=== PATIENT | female | born 1980 | race Caucasian/White ===

== ENCOUNTER 2018-09-23 09:20 | Emergency (ER) | payer OTHER ==
--- NOTE | 2018-09-23 09:25 | PDOC ---
History of Present Illness - General Chief Complaint: Pain, Acute Stated Complaint: BACK PAIN Time Seen by Provider: 09/23/18 09:25 History Source: Patient Exam Limitations: No Limitations - History of Present Illness Initial Comments: 09/23/18 09:33 Ms Freeman is a 37 yo F h/o thyroiditis, SVT presenting to the ER with a complaint of right flank pain. Symptoms began several days ago. 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 HEAD, EYES, EARS, NOSE AND THROAT: No: change in vision, ear pain, discharge, sore throat, throat swelling. CARDIOVASCULAR: No: chest pain, lightheadedness, palpitations, syncope RESPIRATORY: No: cough, shortness of breath, wheezing, hemoptysis, stridor. GASTROINTESTINAL: No: nausea, vomiting, diarrhea, abdominal cramping, rectal bleeding, constipation. GENITOURINARY: Yes: flank pain No: dysuria, hematuria, frequency, urgency, flank pain. MUSCULOSKELETAL: No: back pain, neck pain, joint pain, muscle swelling or pain SKIN: No: lesions, pallor, rash or easy bruising. NEUROLOGIC: No: headache, vertigo, paresthesias, weakness ENDOCRINE: No: unexplained weight gain or loss HEMATOLOGIC/LYMPHATIC: No: anemia, easy bleeding, swelling nodes. PE: GENERAL: The patient is in no acute distress. HEAD: Normal EYES: PERRLA, EOMI, sclera anicteric, conjunctiva clear. ENT: Ears normal, nares patent, oropharynx clear without exudates. Moist mucous membranes. NECK: Normal range of motion LUNGS: Breath sounds equal, clear to auscultation bilaterally. HEART:Regular rate and rhythm, normal S1 and S2 without murmur, rub or gallop. ABDOMEN: Soft, nontender, normoactive bowel sounds. No guarding, no rebound. No masses palpable. EXTREMITIES: Normal range of motion NEUROLOGICAL: Cranial nerves II through XII grossly intact. Normal speech. No focal neurological deficits. MUSCULOSKELETAL: Yes: right CVA tenderness (pt feels pain when the US probe presses in to the kidney) SKIN: Warm, Dry, normal turgor, no rashes or lesions noted. Past History - Past Medical History Allergies/Adverse Reactions: Allergies Allergy/AdvReac Type Severity Reaction Status Date / Time No Known Drug Allergies Allergy Verified 02/06/18 13:23 phenol [From Chloraseptic] Allergy Verified 09/23/18 09:22 Home Medications: Ambulatory Orders Lidocaine 5% Patch [Lidoderm Patch -] 1 patch TP DAILY PRN #30 patch 09/23/18 Methocarbamol [Robaxin -] 500 mg PO TID PRN #30 tablet 09/23/18 Naproxen [Naprosyn -] 500 mg PO BID PRN #14 tablet 09/23/18 Anemia: No Asthma: No Cancer: No Cardiac Disorders: Yes (svt) CVA: No COPD: No CHF: No Dementia: No Diabetes: No GI Disorders: No Disorders: No HTN: No Hypercholesterolemia: No Kidney Stones: Yes Liver Disease: No Seizures: No Thyroid Disease: Yes - Surgical History Abdominal Surgery: No Appendectomy: Yes Cardiac Surgery: No Cholecystectomy: Yes - Immunization History Immunization Up to Date: Yes - Suicide/Smoking/Psychosocial Hx Smoking Status: No Smoking History: Never smoked Have you smoked in the past 12 months: No Number of Cigarettes Smoked Daily: 0 Cigars Per Day: 0 Hx Alcohol Use: No Drug/Substance Use Hx: No Substance Use Type: None Hx Substance Use Treatment: No Medical Decision Making - Medical Decision Making 09/23/18 09:44 Flank pain : Pyelonephritis vs obstructing stone vs. musculoskeletal pain No signs of zoster UA/Urine culture Spiral CT Toradol Reassess 09/23/18 10:36 Laboratory Tests 09/23/18 09/23/18 09:34 09:34 Urine Blood 1+ H Urine Nitrite Negative Ur Leukocyte Esterase Negative Urine WBC (Auto) 1 Urine RBC (Auto) 1 Urine HCG, Qual Negative Spiral ct negative Will give robaxin Will ask pt to follow up with PMD *DC/Admit/Observation/Transfer Diagnosis at time of Disposition: Right flank pain - Discharge Dispostion Disposition: HOME Condition at time of disposition: Stable Decision to Admit order: No - Referrals - Patient Instructions Printed Discharge Instructions: DI for Flank Pain Additional Instructions: Thank you for coming in to the ER today Please be sure to follow up with your primary care physician Please return to the ER for persistent or worsening symptoms Monitor for fevers If you develop fevers you must return for re evaluation - Post Discharge Activity
[2018-09-23] MEDS ORDERED: KETOROLAC TROMETHAMINE 30 MG/1 ML VIAL IM ONE (09:28)
[2018-09-23 09:45] LABS: URINE APPEARANCE CLEAR; URINE BILIRUBIN NEGATIVE (<2.0 mg/dL); URINE COLOR LTYELLOW; URINE GLUCOSE (UA) NEGATIVE (NEGATIVE); URINE KETONE NEGATIVE (NEGATIVE); URINE LEUK ESTERASE NEGATIVE (NEGATIVE); URINE NITRITE NEGATIVE (NEGATIVE); URINE PROTEIN NEGATIVE (NEGATIVE); URINE UROBILINOGEN NEGATIVE mg/dL (0.2-1.0)
[2018-09-23 10:28] LABS: EPI CELLS RARE /HPF (FEW); URINE BACTERIA RARE /hpf (NONE SEEN)
[2018-09-23] MEDS ORDERED: METHOCARBAMOL 500 MG TABLET PO ONE (10:35)
[2018-09-23] MEDS ORDERED: METHOCARBAMOL 500 MG TABLET ONE (10:39)
== END 2018-09-23 11:16 | disposition home or self-care (01) ==
LOC: JER 09:20
PROC: 3E0233Z Introduction of Anti-inflammatory into Muscle, Percutaneous Approach (ICD-10-PCS; principal; 2018-09-23)
DX: R10.31 Right lower quadrant pain (principal); I47.1 Supraventricular tachycardia; Z87.442 Personal history of urinary calculi
CPT/HCPCS: 74176; 81003; 81015; 84703; 87086; 99282-25

== ENCOUNTER 2019-02-09 06:47 | Emergency (ER) | payer OTHER ==
[2019-02-09 06:50] VITALS: BP 148/65; PULSE 115; TEMP 98; BMI 35.5
[2019-02-09] MEDS ORDERED: ACETAMINOPHEN 1000 MG/100 ML VIAL (NON FORMULARY) IVPB ONE (07:48)
[2019-02-09] MEDS ORDERED: ACETAMINOPHEN INJECTION 100 ML IVPB ONE (07:53)
--- NOTE | 2019-02-09 08:10 | PDOC ---
History of Present Illness - General Chief Complaint: Back Pain Stated Complaint: BACK PAIN Time Seen by Provider: 02/09/19 07:10 History Source: Patient Exam Limitations: No Limitations - History of Present Illness Initial Comments: 02/09/19 08:33 38y F hx of svt, kidney stones, remote hx of sciatica presents with R sided back pain. 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 When she woke up yetserday it was still present, but gradually worsened around 4pm last night where it was more severe and pt was uanble to walk/stand/ get out of her SUV. The pain is worse when she is straight, improves with rest. radiates dwon her R thigh. no associated fever/chills, numbness/tingling/ weakness, urinary or bowel incontinence. Had similar but less severe sypmtoms when she was . no recent falls. Past History - Past Medical History Allergies/Adverse Reactions: Allergies Allergy/AdvReac Type Severity Reaction Status Date / Time No Known Drug Allergies Allergy Verified 02/06/18 13:23 phenol [From Chloraseptic] Allergy Verified 02/09/19 06:50 Home Medications: Ambulatory Orders Diazepam [Valium] 5 mg PO BID PRN #6 tablet MDD 2 02/09/19 Anemia: No Asthma: No Cancer: No Cardiac Disorders: Yes (svt) CVA: No COPD: No CHF: No Dementia: No Diabetes: No GI Disorders: No Disorders: No HTN: No Hypercholesterolemia: No Kidney Stones: Yes Liver Disease: No Seizures: No Thyroid Disease: Yes - Surgical History Abdominal Surgery: No Appendectomy: Yes Cardiac Surgery: No Cholecystectomy: Yes - Immunization History Immunization Up to Date: Yes - Suicide/Smoking/Psychosocial Hx Smoking Status: No Smoking History: Never smoked Have you smoked in the past 12 months: No Number of Cigarettes Smoked Daily: 0 Cigars Per Day: 0 Information on smoking cessation initiated: No Hx Alcohol Use: No Drug/Substance Use Hx: No Substance Use Type: None Hx Substance Use Treatment: No Review of Systems - Review of Systems Able to Perform ROS?: Yes Comments:: 02/09/19 08:37 General: NO fever/chills MSK: +back pain radiation down r leg Neuro:no numbeness tingling/weakness : denies urinary or stool incontinence *Physical Exam - Vital Signs Last Vital Signs Temp Pulse Resp BP Pulse Ox 98.0 F 115 H 18 148/65 100 02/09/19 06:48 02/09/19 06:48 02/09/19 06:48 02/09/19 06:48 02/09/19 06:48 - Physical Exam Comments: 02/09/19 08:40 General: apperas to be in pain with movement/ambulation MSK: no focal midline tnedneres, moderate R sided TTP Neuro: Antalgic gait Moderate Sedation - Procedure Monitoring Vital Signs: Procedure Monitoring Vital Signs Temperature 98.0 F 02/09/19 06:48 Pulse Rate 115 H 02/09/19 06:48 Respiratory Rate 18 02/09/19 06:48 Blood Pressure 148/65 02/09/19 06:48 O2 Sat by Pulse Oximetry (%) 100 02/09/19 06:48 Medical Decision Making - Medical Decision Making 02/09/19 08:42 suspect sciatica will give iv tylenol pt had taken 800mg of tylenol earlier today had tried flexeril, and valium last night will redose flexeril at around 10am (last dose 2am) will reassess 02/09/19 12:54 pt feeling improved ambulatory will dc pt to go home to rest return precautions were discussed *DC/Admit/Observation/Transfer Diagnosis at time of Disposition: Back pain with sciatica - Discharge Dispostion Disposition: HOME Condition at time of disposition: Improved Decision to Admit order: No - Prescriptions Prescriptions: Diazepam [Valium] 5 mg PO BID PRN #6 tablet MDD 2 PRN Reason: Back Pain - Referrals - Patient Instructions Printed Discharge Instructions: DI for Low Back Pain Additional Instructions: Return to the emergency department immediately with ANY new, persistent or worsening symptoms including numbness, tingling, weakness, fevers or any other concerns. Take ibuprofen (400mg)/tylenol(650mg) every 6 hours for 2 days. Take the valium 5mg daily if you still have pain/discomfort. Caution in using Valium as it may make you sleepy. Do not drive or put yourself in any position where you would be in danger. Apply heat to your sore muscles. You MUST call and follow up with your doctor tomorrow for further evaluation of your symptoms. Your emergency department visit is not complete without a followup with your doctor for reevaluation.. Results were discussed with you. Please make sure your doctor reviews the results of your emergency evaluation. Print Language: ARMENIAN - Post Discharge Activity Forms/Work/School Notes: Back to Work
[2019-02-09] MEDS ORDERED: CYCLOBENZAPRINE HCL 5 MG TABLET PO ONE (09:44)
[2019-02-09] MEDS ORDERED: CYCLOBENZAPRINE HCL 10 MG TABLET (FP) ONE (10:12)
[2019-02-09] MEDS ORDERED: KETOROLAC TROMETHAMINE 60 MG/2 ML VIAL ONE (11:03)
[2019-02-09] MEDS ORDERED: KETOROLAC TROMETHAMINE 30 MG/1 ML VIAL ONE (11:04)
[2019-02-09] MEDS ORDERED: KETOROLAC TROMETHAMINE 30 MG/1 ML VIAL IVPUSH ONE (11:05)
== END 2019-02-09 12:00 | disposition home or self-care (01) ==
LOC: JER 06:47
PROC: 3E033NZ Introduction of Analgesics, Hypnotics, Sedatives into Peripheral Vein, Percutaneous Approach (ICD-10-PCS; principal; 2019-02-09)
PROC: 3E0333Z Introduction of Anti-inflammatory into Peripheral Vein, Percutaneous Approach (ICD-10-PCS; 2019-02-09)
DX: M54.41 Lumbago with sciatica, right side (principal)
CPT/HCPCS: 99282-25; J0131